=== PATIENT | male | born 1950 | race Caucasian/White ===

== ENCOUNTER 2020-07-10 11:24 | Inpatient (IN) | payer MEDICARE ==
[~2020-07-10] VITALS: Ht 167.6 cm; Wt 52.2 kg
--- NOTE | 2020-07-10 11:50 | NUR ---
PT PLACED IN GOWN. PT ON VITALS MONITORS AND CARDIAC MONITORS. PT STATED HE IS NOT IN PAIN AND WAS ORIGINALLY REFUSING IV PLACEMENT AND REFUSED IV PLACEDMENT WITH EMS. PT STATED HE DOES NOT WANT ANY CHEMICALS. ERP SPOKE WITH PT ABOUT INJURY AND NEED FOR IV, PT THEN AGREED TO IV AND MEDS. PT GOING TO RAD AT THIS TIME.
[2020-07-10] MEDS ORDERED: PLEASE ENTER ALLERGIES MC SCH (12:00)
[2020-07-10] MEDS ORDERED: MORPHINE SULFATE 4 MG/ML, 1ML IVPush PRN (12:00)
[2020-07-10] MEDS ORDERED: ONDANSETRON 2MG/ML, 2ML IVPush ONE (12:00)
[2020-07-10] MEDS ORDERED: SODIUM CHLORIDE FLUSH 10ML SYR IVF ONE (12:00)
[2020-07-10] MEDS ORDERED: PLEASE ENTER HEIGHT AND WEIGHT MC SCH (12:00)
[2020-07-10 12:04] LABS: BASOPHILS # (AUTO) 0.03 x10^3/uL (0-0.1); BASOPHILS % (AUTO) 0 % (0-1); EOSINOPHILS # (AUTO) 0.04 x10^3/uL (0-0.4); EOSINOPHILS % (AUTO) 0 % (1-7); LYMPHOCYTES # (AUTO) 1.17 x10^3/uL (1-3.4); LYMPHOCYTES % (AUTO) 9 % (22-44); MD NO; MEAN CORPUSCULAR HEMOGLOBIN 31.4 pg (27.5-34.5); MEAN CORPUSCULAR HGB CONC 33.5 g/dL (33.2-36.2); MEAN CORPUSCULAR VOLUME 93.6 fL (81-97); MEAN PLATELET VOLUME 8.4 fL (7.4-10.4); MONOCYTES # (AUTO) 0.37 x10^3/uL (0.2-0.8); MONOCYTES % (AUTO) 3 % (2-9); NEUTROPHILS # (AUTO) 11.74 x10^3/uL (1.8-6.8); NEUTROPHILS % (AUTO) 88 % (42-75); PLATELET COUNT 250 x10^3/uL (130-400); RED BLOOD COUNT 4.06 x10^6/uL (4.38-5.82); RED CELL DISTRIBUTION WIDTH 13.5 % (9.4-14.8)
[2020-07-10 12:10] LABS: ALBUMIN 3.5 g/dL (3.4-5.0); ANION GAP 6 mmol/L (5-15); CALCIUM 8.9 mg/dL (8.5-10.1); CHLORIDE 108 mmol/L (98-107); CREATININE 0.94 mg/dL (0.7-1.3); INTERNATIONAL NORMALIZED RATIO 1.06 (0.93-1.1); PROTHROMBIN TIME 10.9 Seconds (9.6-11.5)
--- NOTE | 2020-07-10 12:24 | NUR ---
PT BACK FROM RAD. PT ASKING ABOUT HIS . CALLED PT AT NUMBER GIVEN BY EMS. NO ANSWER AT THIS TIME. WILL TRY AGAIN.
[2020-07-10] MEDS ORDERED: ONDANSETRON 2MG/ML, 2ML ONE ×2 (12:32→17:45)
[2020-07-10] MEDS ORDERED: MORPHINE SULFATE 4 MG/ML, 1ML ONE (12:32)
[2020-07-10] MEDS ORDERED: HYDROmorphone 2 MG/ML, 1ML IVPush PRN ×2 (13:30→20:30)
[2020-07-10] MEDS ORDERED: GABAPENTIN 300 MG CAPSULE PO PRN (13:30)
[2020-07-10] MEDS ORDERED: MELATONIN 5 MG TABLET PO PRN (13:30)
[2020-07-10] MEDS ORDERED: BACLOFEN 10 MG TABLET PO PRN (13:30)
[2020-07-10] MEDS ORDERED: GUAIFENESIN/DM 200-20MG, 10ML UDC PO PRN (13:30)
[2020-07-10] MEDS ORDERED: LABETALOL 5MG/ML, 20ML IVPush PRN (13:30)
[2020-07-10] MEDS ORDERED: ONDANSETRON ODT 4 MG PO PRN (13:30)
[2020-07-10] MEDS ORDERED: ONDANSETRON 2MG/ML, 2ML IVPush PRN (13:30)
[2020-07-10] MEDS ORDERED: hydrALAzine 20 MG/ML, 1ML IVPush PRN (13:30)
--- NOTE | 2020-07-10 14:23 | NUR ---
BREAK RN: REPORT CALLED INTO SAME DAY SURGERY
[2020-07-10 14:58] VITALS: BP 153/80
[2020-07-10] MEDS ORDERED: LACTATED RINGERS 1,000 ML IV SCH (15:14)
[2020-07-10] MEDS ORDERED: CHLORHEXIDINE 15 ML UDC MM ONE (15:30)
[2020-07-10] MEDS ORDERED: LISI1TAB20 PO (15:35)
[2020-07-10] MEDS ORDERED: SIMV20TA19 PO (15:35)
[2020-07-10] MEDS ORDERED: OXYcodone 5 MG/5 ML ORAL.SOL UDC PO PRN (17:00)
[2020-07-10] MEDS ORDERED: HYDROmorphone 1 MG/ML, 1ML INJ IVPush PRN (17:00)
[2020-07-10] MEDS ORDERED: ALBUTEROL SULFATE 2.5 MG/3 ML NPPB PRN (17:00)
[2020-07-10] MEDS ORDERED: MIDAZOLAM 1 MG/ML, 2ML IV PRN (17:00)
[2020-07-10] MEDS ORDERED: ACETAMINOPHEN 325 MG TABLET PO PRN (17:00)
[2020-07-10] MEDS ORDERED: hydrALAzine 20 MG/ML, 1ML IV PRN (17:00)
[2020-07-10] MEDS ORDERED: LABETALOL 5MG/ML, 20ML IV PRN (17:00)
[2020-07-10] MEDS ORDERED: PROMETHAZINE 25 MG/ML, 1ML IVPush PRN (17:00)
[2020-07-10] MEDS ORDERED: FENTANYL PF 100 MCG/2ML IV PRN (17:00)
[2020-07-10] MEDS ORDERED: MEPERIDINE/PF 25MG/0.5ML IVPush PRN (17:00)
[2020-07-10] MEDS ORDERED: FENTANYL PF 100 MCG/2ML ONE ×2 (17:02→18:01)
[2020-07-10] MEDS ORDERED: EPHEDRINE 50 MG/ML, 1ML ONE (17:06)
[2020-07-10] MEDS ORDERED: LIDOCAINE 2%, 20ML ONE (17:06)
[2020-07-10] MEDS ORDERED: SUCCINYLCHOLINE 20 MG/ML, 10ML ONE (17:06)
[2020-07-10] MEDS ORDERED: CEFAZOLIN 1,000 MG ONE (17:45)
[2020-07-10] MEDS ORDERED: DEXAMETHASONE 4 MG/ML, 1ML ONE (17:45)
[2020-07-10] MEDS ORDERED: PROPOFOL 10 MG/ML, 20ML ONE (17:45)
[2020-07-10] MEDS ORDERED: OXYcodone 5 MG/5 ML ORAL.SOL UDC ONE (18:01)
[2020-07-10] MEDS ORDERED: hydrALAzine 20 MG/ML, 1ML ONE (18:53)
[2020-07-10 19:55] VITALS: BP 144/85
[2020-07-10] MEDS ORDERED: DIPHENHYDRAMINE 25 MG CAPSULE PO PRN (20:30)
[2020-07-10] MEDS ORDERED: HYDROcodone/APAP 5/325 TABLET PO PRN (20:30)
[2020-07-10] MEDS ORDERED: OXYcodone/APAP 5/325MG TABLET PO PRN (20:30)
[2020-07-10] MEDS ORDERED: ONDANSETRON 2MG/ML, 2ML IV PRN (20:30)
[2020-07-10] MEDS ORDERED: NICOTINE 21 MG/24 HR PATCH.TD24 TD ONE (21:00)
[2020-07-10] MEDS: KETOROLAC 30 MG/1 ML IV SCH (22:23)
[2020-07-10] MEDS: DOCUSATE 100 MG CAPSULE PO SCH (22:23)
[2020-07-10] MEDS: SODIUM CHLORIDE FLUSH 10ML SYR IVF SCH (22:24)
[2020-07-11] VITALS: BP 114/71
[2020-07-11] MEDS: CEFAZOLIN PMX 1GM/50ML 50 ML IVPB SCH ×2 (00:38→09:05)
[2020-07-11] MEDS: ENOXAPARIN 40 MG/0.4 ML SQ SCH (05:47)
[2020-07-11] MEDS: KETOROLAC 30 MG/1 ML IV SCH ×2 (05:47→14:15)
[2020-07-11 05:52] LABS: ALBUMIN 2.8 g/dL (3.4-5.0); ANION GAP 7 mmol/L (5-15); CHLORIDE 105 mmol/L (98-107)
[2020-07-11 06:23] LABS: ALANINE AMINOTRANSFERASE 12 U/L (12-78); ALKALINE PHOSPHATASE 66 U/L (45-117); BILIRUBIN,TOTAL 0.5 mg/dL (0.2-1.0); CALCIUM 8.5 mg/dL (8.5-10.1); CREATININE 0.88 mg/dL (0.7-1.3); TOTAL PROTEIN 6.4 g/dL (6.4-8.2)
[2020-07-11 06:40] LABS: BASOPHILS # (AUTO) 0.02 x10^3/uL (0-0.1); BASOPHILS % (AUTO) 0 % (0-1); EOSINOPHILS % (AUTO) 0 % (1-7); LYMPHOCYTES # (AUTO) 1.16 x10^3/uL (1-3.4); LYMPHOCYTES % (AUTO) 14 % (22-44); MD NO; MEAN CORPUSCULAR HEMOGLOBIN 31.4 pg (27.5-34.5); MEAN CORPUSCULAR HGB CONC 33.5 g/dL (33.2-36.2); MEAN CORPUSCULAR VOLUME 93.7 fL (81-97); MEAN PLATELET VOLUME 8.9 fL (7.4-10.4); MONOCYTES # (AUTO) 0.69 x10^3/uL (0.2-0.8); MONOCYTES % (AUTO) 8 % (2-9); NEUTROPHILS # (AUTO) 6.35 x10^3/uL (1.8-6.8); NEUTROPHILS % (AUTO) 77 % (42-75); PLATELET COUNT 195 x10^3/uL (130-400); RED BLOOD COUNT 3.35 x10^6/uL (4.38-5.82); RED CELL DISTRIBUTION WIDTH 13.4 % (9.4-14.8)
[2020-07-11 06:55] VITALS: BP 102/63
[2020-07-11] MEDS: DOCUSATE 100 MG CAPSULE PO SCH ×2 (09:05→20:32)
[2020-07-11] MEDS: SENNA/DOCUSATE TABLET PO SCH (09:05)
[2020-07-11] MEDS: SODIUM CHLORIDE FLUSH 10ML SYR IVF SCH ×2 (09:06→20:33)
[2020-07-11 13:28] VITALS: BP 93/54
[2020-07-11] MEDS ORDERED: CYANOCOBALAMIN 1,000 MCG/ML, 1ML IM ONE (15:00)
[2020-07-11 18:59] VITALS: BP 98/65
[2020-07-12 00:41] VITALS: BP 111/55
[2020-07-12] MEDS: ENOXAPARIN 40 MG/0.4 ML SQ SCH (06:13)
[2020-07-12 06:22] VITALS: BP 128/69
[2020-07-12] MEDS: TAMSULOSIN 0.4 MG CAP.ER.24H PO SCH (08:33)
[2020-07-12] MEDS: DOCUSATE 100 MG CAPSULE PO SCH ×2 (08:33→21:46)
[2020-07-12] MEDS: SENNA/DOCUSATE TABLET PO SCH (08:33)
[2020-07-12] MEDS: CYANOCOBALAMIN 1,000 MCG TABLET PO SCH (08:33)
[2020-07-12] MEDS: SODIUM CHLORIDE FLUSH 10ML SYR IVF SCH ×2 (09:00→21:46)
[2020-07-12] MEDS: CHOLECALCIFEROL 5,000u TAB PO SCH (09:48)
[2020-07-12 12:26] VITALS: BP 134/65
[2020-07-12 18:22] VITALS: BP 102/65
[2020-07-13 00:49] VITALS: BP 151/86
[2020-07-13] MEDS: ENOXAPARIN 40 MG/0.4 ML SQ SCH (06:27)
[2020-07-13 07:37] VITALS: BP 102/58
[2020-07-13] MEDS: CYANOCOBALAMIN 1,000 MCG TABLET PO SCH (09:01)
[2020-07-13] MEDS: TAMSULOSIN 0.4 MG CAP.ER.24H PO SCH (09:01)
[2020-07-13] MEDS: CHOLECALCIFEROL 5,000u TAB PO SCH (09:01)
[2020-07-13] MEDS: SENNA/DOCUSATE TABLET PO SCH (09:01)
[2020-07-13] MEDS: SODIUM CHLORIDE FLUSH 10ML SYR IVF SCH (09:01)
[2020-07-13] MEDS: DOCUSATE 100 MG CAPSULE PO SCH (09:01)
[2020-07-13] MEDS ORDERED: ATOR80TA PO (11:08)
[2020-07-13] MEDS ORDERED: DOCU100C33 PO (11:08)
[2020-07-13] MEDS ORDERED: ACET500T64 PO (11:08)
[2020-07-13] MEDS ORDERED: ENOX40SY4 SQ (11:08)
[2020-07-13] MEDS ORDERED: TRAM50TA2 PO (11:08)
[2020-07-13] MEDS ORDERED: TAMS-11 PO (11:08)
[2020-07-13] MEDS ORDERED: CYAN-27 PO (11:08)
[2020-07-13] MEDS ORDERED: MELA5TAB14 PO (11:08)
[2020-07-13] MEDS ORDERED: CHOL500045 PO (11:08)
[2020-07-13 14:29] VITALS: BP 126/72
== END 2020-07-13 16:17 | DRG 480 ==
LOC: ED 13:08 → SUATTDRO 15:03 → 4NE 19:49
PROVIDERS: ADMIT Internal Medicine; ATTEND Internal Medicine
PROC: 0QS606Z Reposition Right Upper Femur with Intramedullary Internal Fixation Device, Open Approach (ICD-10-PCS; principal; 2020-07-10 17:00)
DX: S72.141A Displaced intertrochanteric fracture of right femur, initial encounter for closed fracture (principal); E43 Unspecified severe protein-calorie malnutrition; R64 Cachexia; Z68.1 Body mass index [BMI] 19.9 or less, adult; Z20.828 Contact with and (suspected) exposure to other viral communicable diseases; W01.0XXA Fall on same level from slipping, tripping and stumbling without subsequent striking against object, initial encounter; Z66 Do not resuscitate; I73.9 Peripheral vascular disease, unspecified; F17.210 Nicotine dependence, cigarettes, uncomplicated; R29.6 Repeated falls; D72.829 Elevated white blood cell count, unspecified; E55.9 Vitamin D deficiency, unspecified; E53.8 Deficiency of other specified B group vitamins; R33.9 Retention of urine, unspecified; J44.9 Chronic obstructive pulmonary disease, unspecified; E78.00 Pure hypercholesterolemia, unspecified; R26.9 Unspecified abnormalities of gait and mobility; I10 Essential (primary) hypertension; Y93.89 Activity, other specified; Y92.89 Other specified places as the place of occurrence of the external cause; Y99.8 Other external cause status; Z90.89 Acquired absence of other organs; Z80.3 Family history of malignant neoplasm of breast; Z88.0 Allergy status to penicillin; Z79.899 Other long term (current) drug therapy
CPT/HCPCS: 36415; 70551; 71045; 76000; 80048; 80053; 82040; 82306; 82607; 83735; 84443; 85025; 85610; 87635; 93005; 93922; 93925; 96374; 96375; 99285; C1713; G0378; J0690; J1100; J1650; J1885; J2405; J2704; J3010; J0330; J0360; J2270; J3420; J7120